=== PATIENT | female | born 1980 | race Two or more races ===

== ENCOUNTER 2019-05-23 18:48 | Emergency (ER) | payer BC ==
[~2019-05-23] VITALS: Ht 160 cm; Wt 83.0 kg
[2019-05-23] MEDS ORDERED: HYDROcodone-ACET 5/325MG TAB PO ONE (21:30)
[2019-05-23 21:54] VITALS: BP 143/96
== END 2019-05-23 22:00 | disposition home or self-care (01) ==
LOC: ER 18:48
DX: G43.909 Migraine, unspecified, not intractable, without status migrainosus (principal); K21.9 Gastro-esophageal reflux disease without esophagitis
CPT/HCPCS: 70450; 70486